=== PATIENT | female | born 1930 | race Caucasian/White ===

== ENCOUNTER 2017-10-11 09:03 | Inpatient (IN) | payer MEDICARE, BC ==
[2017-10-11 10:20] LABS: CHLORIDE,CL 104 mmol/L (98-107); SODIUM,NA 141 mmol/L (136-145)
[2017-10-11] MEDS: Acetaminophen 650 MG Tab.ER PO SCH ×2 (11:38→17:24)
--- NOTE | 2017-10-11 13:14 | PCM.HP ---
H&P History of Present Illness - General Date of Service: 10/11/17 Admit Problem/Dx: Admission Diagnosis/Problem Admission Diagnosis/Problem Fracture of pelvis Source of Information: Patient, EMS Notes Reviewed History Limitations: Reports: Altered Mental Status - History of Present Illness Initial Comments - Free Text/Narative: Patient has been seen in the clinic yesterday with continual left groin pain. Xrays done and CT scan done which shows nondisplaced fracture involoving the left inferior pubic ramus. No recent trauma according to the staff at the [facility] however the patient is a limited historian due to her dementia. Patient complains of pain with ambulating, no pain with sitting. Denies any blood in the urine. Labs drawn yesterday. Location: Reports: Lower Extremity, Left Improves with: Reports: Rest Worsens with: Reports: Movement Associated Symptoms: Reports: Confusion - Related Data Allergies/Adverse Reactions: Allergies Allergy/AdvReac Type Severity Reaction Status Date / Time fentanyl Allergy Confusion Verified 10/11/17 09:54 Home Medications: Home Meds Donepezil [Aricept] 5 mg PO QPM 04/15/15 [History] Acetaminophen [Tylenol Arthritis Pain] 650 mg PO TID 10/20/15 [History] Cyanocobalamin (Vitamin B12) [Vitamin B12] 1,000 mcg IM Q30D 10/20/15 [History] Multivitamins [Tab-A-Te] 1 tab PO QAM 10/27/15 [History] Cholecalciferol (Vitamin D3) [Vitamin D3] 1,000 unit PO QAM 03/28/16 [History] Hydrocortisone [Anusol-HC] 1 applic RECTAL BID PRN 03/28/16 [History] Lactulose 30 ml PO DAILY PRN 03/28/16 [History] Calcium Carbonate [Calcium] 500 mg PO BID 10/08/16 [History] Memantine HCl [Namenda] 5 mg PO BID 10/11/17 [History] Past Medical History HEENT History: Reports: Impaired Vision Cardiovascular History: Reports: Arrhythmia, CAD, Heart Failure, High Cholesterol, Hypertension Respiratory History: Reports: COPD, Pulmonary Fibrosis Gastrointestinal History: Reports: Fecal Incontinence Other Gastrointestinal History: Borderline dysphagia, new incontinence issues Genitourinary History: Reports: Urinary Incontinence Other Genitourinary History: new incontinence issues [employer]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 Musculoskeletal History: Reports: Arthritis, Back Pain, Chronic, Fracture, Neck Pain, Chronic, Osteoarthritis, Osteoporosis Other Musculoskeletal History: new onset of Lt upper thigh/groin/hip area pain especially with weightbearing Neurological History: Reports: Alzheimers Disease Psychiatric History: Reports: Depression Endocrine/Metabolic History: Reports: Multinodular Thyroid, Osteoporosis Other Endocrine/Metabolic History: Left thyroid nodule, 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 requiring surgery as below Hematologic History: Reports: Anemia, B12 Deficiency Immunologic History: Reports: None Oncologic (Cancer) History: Reports: None Dermatologic History: Reports: None - Infectious Disease History Infectious Disease History: Reports: Chicken Pox, Measles, Shingles - Past Surgical History Head Surgeries/Procedures: Reports: None HEENT Surgical History: Reports: Cataract Surgery, Tonsillectomy Endocrine Surgical History: Reports: Thyroidectomy, Other (See Below) - Past Imaging History Past Imaging History: Reports: IMELDA Screen, Cardiac Echo, CAT Scan, DEXA Scan, MRI, Ultrasound Social & Family History - Family History Cardiac: Reports: [place] Neurological: Reports: CVA Oncologic: Reports: Lung, Renal, Other (See Below) Other Oncologic Family History: Father with possible fatal stomach cancer at age 52 - Tobacco Use Smoking Status *Q: Never Smoker Second Hand Smoke Exposure: No - Caffeine Use Caffeine Use: Reports: Coffee - Alcohol Use Days Per Week of Alcohol Use: 0 Number of Drinks Per Day: 0 Total Drinks Per Week: 0 - Recreational Drug Use Recreational Drug Use: No Drug Use in Last 12 Months: No - Living Situation & Occupation Living situation: Reports: , Assisted Living H&P Review of Systems - Review of Systems: Review Of Systems: See Below General: Reports: Weakness HEENT: Reports: No Symptoms Pulmonary: Reports: No Symptoms Cardiovascular: Reports: No Symptoms Gastrointestinal: Reports: No Symptoms Genitourinary: Reports: No Symptoms Musculoskeletal: Reports: Leg Pain, Joint Pain Skin: Reports: No Symptoms Psychiatric: Reports: Confusion Neurological: Reports: Confusion Hematologic/Lymphatic: Reports: No Symptoms Immunologic: Reports: No Symptoms Exam - Exam Exam: See Below - Vital Signs Vital Signs: Last Vital Signs Temp 97.7 F 10/11/17 12:00 Pulse 64 10/11/17 12:00 Resp 16 10/11/17 12:00 BP 142/80 H 10/11/17 12:00 Pulse Ox 98 10/11/17 12:00 Weight: 119 lb 3.2 oz - Exam General: Alert, Cooperative HEENT: Conjunctiva Clear, EACs Clear, EOMI, Mucosa Moist & [place], Normal Nasal Septum, Posterior Pharynx Clear Neck: Supple, Trachea Midline Lungs: Clear to Auscultation, Normal Respiratory Effort Cardiovascular: Regular Rate, Regular Rhythm GI/Abdominal Exam: Normal Bowel Sounds, Soft, Non-Tender, No Organomegaly, No Distention Back Exam: Normal Inspection Extremities: No Pedal Edema, Normal Capillary Refill Peripheral Pulses: 1+: Dorsalis Pedis (L), Dorsalis Pedis (R) Skin: Warm, Dry, Intact Neurological: Cranial Nerves Intact, Reflexes Equal Bilateral Neuro Extensive - Mental Status: Normal Mood/Affect, Disorientation to Time - Patient Data Lab Results Last 24 hrs: Laboratory Results - last 24 hr 10/11/17 10/11/17 Range/Units 10:00 10:05 WBC 6.4 (4.0-10.2) K/uL RBC 3.81 (3.77-5.09) M/uL Hgb 13.0 (11.7-15.5) g/dL Hct 38.5 (34.0-46.0) % MCV 101.0 H (84.0-98.0) fL MCH 34.1 H (28.2-33.3) pg MCHC 33.8 (31.7-36.0) g/dL RDW 13.7 (11.2-14.1) % Plt Count 284 (150-350) K/uL Neut % (Auto) 71.0 (45.0-80.0) % Lymph % (Auto) 15.6 (10.0-50.0) % [place] % (Auto) 11.4 (2.0-14.0) % Eos % (Auto) 1.4 (0.0-5.0) % Baso % (Auto) 0.6 (0.0-2.0) % Neut # (Auto) 4.54 (1.40-7.00) K/uL Lymph # (Auto) 1.00 (0.50-3.50) K/uL [place] # (Auto) 0.73 (0.00-1.00) K/uL Eos # (Auto) 0.09 (0.00-0.50) K/uL Baso # (Auto) 0.04 (0.00-0.20) K/uL Sodium 141 (136-145) mmol/L Potassium 4.1 (3.5-5.1) mmol/L Chloride 104 (98-107) mmol/L Carbon Dioxide 24.7 (21.0-32.0) mmol/L BUN 18 (7-18) mg/dL Creatinine 0.78 (0.51-1.17) mg/dL Est Cr Clr Drug Dosing TNP Estimated GFR (MDRD) > 60 mL/min Glucose 87 (74-106) mg/dL Calcium 9.3 (8.5-10.1) mg/dL Total Bilirubin 0.3 (0.2-1.0) mg/dL AST 15 (15-37) U/L ALT 17 (12-78) U/L Alkaline Phosphatase 112 (46-116) IU/L C-Reactive Protein 0.2 (<=0.9) mg/dL Total Protein 6.9 (6.4-8.2) g/dL Albumin 3.5 (3.4-5.0) g/dL Result Diagrams: 10/11/17 10:05 10/11/17 10:00 *Q Meaningful Use (ADM) - VTE *Q VTE Criteria *Q: - Stroke *Q Stroke Criteria *Q: - AMI *Q AMI Criteria *Q: - Problem List (1) Fracture of left pelvis SNOMED Code(s): 98743723 ICD Code: S32.9XXA - FRACTURE OF UNSP PARTS OF LUMBOSACRAL SPINE AND PELVIS, INIT Status: Acute Current Visit: Yes Qualifiers: Encounter type: initial encounter Pelvic bone location: pubis Sublocation of pubis: unspecified portion of pubis Fracture type: closed Qualified Code(s): S32.502A - Unspecified fracture of left pubis, initial encounter for closed fracture (2) Dementia SNOMED Code(s): 28061692 ICD Code: F03.90 - UNSPECIFIED DEMENTIA WITHOUT BEHAVIORAL DISTURBANCE Status: Acute Current Visit: Yes Qualifiers: Dementia type: Alzheimer's disease (3) Hypertension SNOMED Code(s): 07317030 ICD Code: I10 - ESSENTIAL (PRIMARY) HYPERTENSION Status: Chronic Priority : Medium Current Visit: No Problem Details: Stable in the emergency room Qualifiers: Hypertension type: essential hypertension Qualified Code(s): I10 - Essential (primary) hypertension Problem List Initiated/Reviewed/Updated: Yes Orders Last 24hrs: Active Orders 24 hr Category Date Time Status Patient Status [ADT] Routine ADT 10/11/17 09:47 Active Antiembolic Devices [RC] PER UNIT ROUTINE Care 10/11/17 09:51 Active Bedrest Bathroom Privileges [RC] ASDIRECTED Care 10/11/17 09:47 Active Intake and Output [RC] QSHIFT Care 10/11/17 09:49 Active Oxygen Therapy [RC] PRN Care 10/11/17 09:47 Active Peripheral IV Care [RC] 00,08,16 Care 10/11/17 09:51 Active VTE/DVT Education [RC] PER UNIT ROUTINE Care 10/11/17 09:47 Active Vital Signs [RC] Q4HR Care 10/11/17 09:47 Active Consult to Case Management [CONS] Routine Cons 10/11/17 09:47 Active PT Evaluation and Treatment [CONS] Routine Cons 10/11/17 09:47 Active Regular Diet [DIET] Diet 10/11/17 Lunch Active CBC WITH AUTO DIFF [HEME] DAILY Lab 10/12/17 05:11 Ordered CBC WITH AUTO DIFF [HEME] DAILY Lab 10/13/17 05:11 Ordered CBC WITH AUTO DIFF [HEME] DAILY Lab 10/14/17 05:11 Ordered CBC WITH AUTO DIFF [HEME] DAILY Lab 10/15/17 05:11 Ordered CMP [COMPREHENSIVE METABOLIC PN,CMP] [CHEM] DAILY Lab 10/12/17 05:11 Ordered CMP [COMPREHENSIVE METABOLIC PN,CMP] [CHEM] DAILY Lab 10/13/17 05:11 Ordered CMP [COMPREHENSIVE METABOLIC PN,CMP] [CHEM] DAILY Lab 10/14/17 05:11 Ordered CMP [COMPREHENSIVE METABOLIC PN,CMP] [CHEM] DAILY Lab 10/15/17 05:11 Ordered Acetaminophen [Tylenol Arthritis Pain] Med 10/11/17 12:00 Active 650 mg PO TID Calcium Carbonate [Tums] Med 10/11/17 18:00 Active 500 mg PO BID Cholecalciferol (Vitamin D3) [Vitamin D3] Med 10/12/17 08:00 Active 1,000 units PO QAM Donepezil [Aricept] Med 10/11/17 18:00 Active 5 mg PO QPM Ketorolac [Toradol] Med 10/11/17 13:15 Ordered 15 mg IVPUSH Q8H Memantine [Namenda] Med 10/11/17 18:00 Active 5 mg PO BID Multivitamins [Tab-A-Te] Med 10/12/17 08:00 Active 1 tab PO QAM Pantoprazole [ProTONIX IV] Med 10/11/17 13:15 Ordered 20 mg IVPUSH Q12H Sodium Chloride 0.9% [Saline Flush] Med 10/11/17 09:47 Active 10 ml FLUSH ASDIRECTED PRN Antiembolic Hose [OM.PC] Per Unit Routine Oth 10/11/17 09:49 Ordered Peripheral IV Insertion Adult [OM.PC] Routine Oth 10/11/17 09:47 Ordered Saline Lock Insert [OM.PC] Routine Oth 10/11/17 09:47 Ordered Resuscitation Status Routine Resus Stat 10/11/17 09:47 Ordered Medication Orders Acetaminophen (Tylenol Arthritis Pain) 650 mg PO TID FREDRICK Last Admin: 10/11/17 11:38 Dose: 650 mg Calcium Carbonate/Glycine (Tums) 500 mg PO BID FREDRICK Cholecalciferol (Vitamin D3) 1,000 units PO QAM FREDRICK Donepezil HCl (Aricept) 5 mg PO QPM FREDRICK Ketorolac Tromethamine (Toradol) 15 mg IVPUSH Q8H FREDRICK Stop: 10/14/17 13:07 Memantine (Namenda) 5 mg PO BID FREDRICK Multivitamins/Minerals/Vitamin C (Tab-A-Te) 1 tab PO QAM FREDRICK Pantoprazole Sodium (Protonix Iv) 20 mg IVPUSH Q12H FREDRICK Sodium Chloride (Saline Flush) 10 ml FLUSH ASDIRECTED PRN PRN Reason: Keep Vein Open Assessment/Plan Comment:: 10/11/2017 Patient is admitted for inpatient services for pelvic fracture and pain management, with outpatient failure. Patient is a resident at [facility] and has been receiving and needing more assistance with ADLs. Discussed with Dr Julio, will start IV Toradol along with IV Protonix. Monitor kidney function as well as for any bleeding issues. Wait to start Lovenox due to IV Toradol and risk of bleeding. Patient's daughter Bertha aware of the plan of care. Physical therapy consulted, patient will need 3 to 4 day hospital stay and then possibly swingbed for further rehab. Brenda Hilliard,BRICK CARRIER
[2017-10-11] MEDS ORDERED: Morphine 2 MG/ML Syringe IVPUSH PRN (13:23)
[2017-10-11] MEDS: Ketorolac 15 MG/ML SDV IVPUSH SCH ×2 (14:07→22:07)
[2017-10-11] MEDS: Pantoprazole 40 MG Vial IVPUSH SCH (14:07)
[2017-10-11] MEDS: Sodium Chloride 0.9% 10 ML Syringe FLUSH PRN ×2 (14:08→22:07)
[2017-10-11] MEDS: Donepezil 5 MG Tab PO SCH (17:24)
[2017-10-11] MEDS: Memantine 10 MG Tab PO SCH (17:24)
[2017-10-11] MEDS: Calcium Carbonate 500 MG Tab.Chew PO SCH (17:24)
[2017-10-12] MEDS: Pantoprazole 40 MG Vial IVPUSH SCH ×2 (03:52→15:26)
[2017-10-12] MEDS: Ketorolac 15 MG/ML SDV IVPUSH SCH ×3 (06:15→21:31)
[2017-10-12] MEDS: Sodium Chloride 0.9% 10 ML Syringe FLUSH PRN ×2 (06:17→21:31)
[2017-10-12] MEDS: Memantine 10 MG Tab PO SCH ×2 (07:53→17:53)
[2017-10-12] MEDS: Calcium Carbonate 500 MG Tab.Chew PO SCH ×2 (07:53→17:51)
[2017-10-12] MEDS: Acetaminophen 650 MG Tab.ER PO SCH ×3 (07:54→19:51)
[2017-10-12] MEDS: Multivitamin Tab PO SCH (07:54)
[2017-10-12] MEDS: Cholecalciferol (Vitamin D3) 1,000 Unit Tab PO SCH (07:54)
[2017-10-12 08:03] LABS: CHLORIDE,CL 105 mmol/L (98-107); SODIUM,NA 140 mmol/L (136-145)
[2017-10-12] MEDS: Donepezil 5 MG Tab PO SCH (17:51)
--- NOTE | 2017-10-12 18:16 | PCM.PN ---
- General Info Date of Service: 10/12/17 Admission Dx/Problem (Free Text): Admission Diagnosis/Problem Admission Diagnosis/Problem Fracture of pelvis Functional Status: Reports: Tolerating Diet, Urinating - Review of Systems General: Reports: No Symptoms HEENT: Reports: No Symptoms Pulmonary: Reports: No Symptoms Cardiovascular: Reports: No Symptoms Gastrointestinal: Reports: No Symptoms Genitourinary: Reports: No Symptoms Musculoskeletal: Reports: Other (groin pain) Skin: Reports: No Symptoms Neurological: Reports: Confusion, Difficulty Walking, Weakness Psychiatric: Reports: Confusion - Patient Data Vitals - Most Recent: Last Vital Signs Temp 97.5 F 10/12/17 16:00 Pulse 70 10/12/17 16:00 Resp 12 10/12/17 16:00 BP 144/74 H 10/12/17 16:00 Pulse Ox 97 10/12/17 16:00 Weight - Most Recent: 119 lb 3.192 oz I&O - Last 24 Hours: Intake & Output 10/12/17 10/12/17 10/12/17 06:59 14:59 22:59 Intake Total 1080 Balance 1080 Lab Results Last 24 Hours: Laboratory Results - last 24 hr 10/12/17 10/12/17 Range/Units 07:15 07:15 WBC 4.9 (4.0-10.2) K/uL RBC 3.55 L (3.77-5.09) M/uL Hgb 12.1 (11.7-15.5) g/dL Hct 36.0 (34.0-46.0) % MCV 101.4 H (84.0-98.0) fL MCH 34.1 H (28.2-33.3) pg MCHC 33.6 (31.7-36.0) g/dL RDW 13.6 (11.2-14.1) % Plt Count 255 (150-350) K/uL Neut % (Auto) 64.8 (45.0-80.0) % Lymph % (Auto) 19.8 (10.0-50.0) % [place] % (Auto) 9.9 (2.0-14.0) % Eos % (Auto) 4.9 (0.0-5.0) % Baso % (Auto) 0.6 (0.0-2.0) % Neut # (Auto) 3.15 (1.40-7.00) K/uL Lymph # (Auto) 0.96 (0.50-3.50) K/uL [place]ke # (Auto) 0.48 (0.00-1.00) K/uL Eos # (Auto) 0.24 (0.00-0.50) K/uL Baso # (Auto) 0.03 (0.00-0.20) K/uL Sodium 140 (136-145) mmol/L Potassium 4.1 (3.5-5.1) mmol/L Chloride 105 (98-107) mmol/L Carbon Dioxide 25.2 (21.0-32.0) mmol/L BUN 21 H (7-18) mg/dL Creatinine 0.81 (0.51-1.17) mg/dL Est Cr Clr Drug Dosing 34.48 mL/min Estimated GFR (MDRD) > 60 mL/min Glucose 87 (74-106) mg/dL Calcium 8.9 (8.5-10.1) mg/dL Total Bilirubin 0.4 (0.2-1.0) mg/dL AST 16 (15-37) U/L ALT 20 (12-78) U/L Alkaline Phosphatase 103 (46-116) IU/L Total Protein 6.6 (6.4-8.2) g/dL Albumin 3.3 L (3.4-5.0) g/dL Med Orders - Current: Current Medications Acetaminophen (Tylenol Arthritis Pain) 650 mg PO TID@0800,1400,2000 [facility] Last Admin: 10/12/17 15:25 Dose: 650 mg Calcium Carbonate/Glycine (Tums) 500 mg PO BID [facility] Last Admin: 10/12/17 17:51 Dose: 500 mg Cholecalciferol (Vitamin D3) 1,000 units PO QAM [facility] Last Admin: 10/12/17 07:54 Dose: 1,000 units Donepezil HCl (Aricept) 5 mg PO QPM [facility] Last Admin: 10/12/17 17:51 Dose: 5 mg Ketorolac Tromethamine (Toradol) 15 mg IVPUSH Q8H [facility] Stop: 10/14/17 14:01 Last Admin: 10/12/17 15:25 Dose: 15 mg Memantine (Namenda) 5 mg PO BID [facility] Last Admin: 10/12/17 17:53 Dose: 5 mg Morphine Sulfate (Morphine) 1 mg IVPUSH Q4H PRN PRN Reason: Pain Multivitamins/Minerals/Vitamin C (Tab-A-Te) 1 tab PO QAM [facility] Last Admin: 10/12/17 07:54 Dose: 1 tab Pantoprazole Sodium (Protonix Iv) 20 mg IVPUSH Q12H [facility] Sodium Chloride (Saline Flush) 10 ml FLUSH ASDIRECTED PRN PRN Reason: Keep Vein Open Last Admin: 10/12/17 06:17 Dose: 10 ml Discontinued Medications Acetaminophen (Tylenol Arthritis Pain) 650 mg PO TID [facility] Last Admin: 10/12/17 07:54 Dose: 650 mg Pantoprazole Sodium (Protonix Iv) 20 mg IVPUSH Q12H [facility] Last Admin: 10/12/17 15:26 Dose: 20 mg - Exam General: Alert, Cooperative, Mild Distress HEENT: Mucous Membr. Moist/[place] Neck: Trachea Midline, No JVD Lungs: Clear to Auscultation, Normal Respiratory Effort Cardiovascular: Regular Rate, Regular Rhythm GI/Abdominal Exam: Normal Bowel Sounds, Soft, Non-Tender, No Distention, Pelvis Stable (but with pain) (Female) Exam: Deferred Back Exam: Other (kyphosis) Extremities: Normal Inspection, No Pedal Edema Skin: Warm, Dry, Intact Neurological: No New Focal Deficit Psy/Mental Status: Alert, Anxious - Problem List & Annotations (1) Dementia SNOMED Code(s): 52885934 Code(s): F03.90 - UNSPECIFIED DEMENTIA WITHOUT BEHAVIORAL DISTURBANCE Status: Acute Current Visit: Yes Qualifiers: Dementia type: Alzheimer's disease (2) Fracture of left pelvis SNOMED Code(s): 22962307 Code(s): S32.9XXA - FRACTURE OF UNSP PARTS OF LUMBOSACRAL SPINE AND PELVIS, INIT Status: Acute Current Visit: Yes Qualifiers: Encounter type: initial encounter Pelvic bone location: pubis Sublocation of pubis: unspecified portion of pubis Fracture type: closed Qualified Code(s): S32.502A - Unspecified fracture of left pubis, initial encounter for closed fracture (3) Anemia SNOMED Code(s): 302863457 Code(s): D64.9 - ANEMIA, UNSPECIFIED Status: Acute Priority: Medium Current Visit: No Annotation/Comment:: Note history of vitamin B 12 deficiency with no supplementation at this time CBC and vitamin B 12 level to be conducted in the a.m. Note the distant EGD and colonoscopy as above. No current abdominal complaints patient given IV Pepcid as GI prophylaxis (4) Confusion SNOMED Code(s): 752077762 Code(s): R41.0 - DISORIENTATION, UNSPECIFIED Status: Chronic Priority: Medium Current Visit: No Annotation/Comment:: r (5) Dyslipidemia SNOMED Code(s): 464846952 Code(s): E78.5 - HYPERLIPIDEMIA, UNSPECIFIED Status: Chronic Priority: Medium Current Visit: No (6) Heart disease SNOMED Code(s): 92676971 Code(s): I51.9 - HEART DISEASE, UNSPECIFIED Status: Chronic Priority: High Current Visit: No Onset Date: 04/16/15 Annotation/Comment:: No chest pain or recent cardiac symptoms (7) Hypertension SNOMED Code(s): 18662264 Code(s): I10 - ESSENTIAL (PRIMARY) HYPERTENSION Status: Chronic Priority : Medium Current Visit: No Qualifiers: Hypertension type: essential hypertension Qualified Code(s): I10 - Essential (primary) hypertension Annotation/Comment:: Stable in the emergency room (8) Osteoarthritis SNOMED Code(s): 467490279 Code(s): M19.90 - UNSPECIFIED OSTEOARTHRITIS, UNSPECIFIED SITE Status: Chronic Priority: Medium Current Visit: No Qualifiers: Osteoarthritis location: multiple joints Osteoarthritis type: primary Qualified Code(s): M15.0 - Primary generalized (osteo)arthritis Annotation/Comment:: Osteoarthritis otherwise stable including chronic neck and low back pain - Problem List Review Problem List Initiated/Reviewed/Updated: Yes - My Orders Last 24 Hours: My Active Orders 10/13/17 05:11 FERRITIN [CHEM] Routine FOLIC ACID [CHEM] Routine IRON/TIBC [CHEM] Routine VITAMIN B12 [CHEM] Routine VITAMIN D 25-HYROXY (D2, D3) [REF] Routine - Plan Plan:: 10/11/2017 Patient is admitted for inpatient services for pelvic fracture and pain management, with outpatient failure. Patient is a resident at [facility] and has been receiving and needing more assistance with ADLs. Discussed with Dr Julio, will start IV Toradol along with IV Protonix. Monitor kidney function as well as for any bleeding issues. Wait to start Lovenox due to IV Toradol and risk of bleeding. Patient's daughter Bertha aware of the plan of care. Physical therapy consulted, patient will need 3 to 4 day hospital stay and then possibly swingbed for further rehab. Brenda Hilliard,SUPERVIS[employer] 09/1317 Nori Paulino MD Anxious. Confusion. Still with left groin pain. Slight improvement. Kidney function stable. Continue medical plan.
[2017-10-13] MEDS: Ketorolac 15 MG/ML SDV IVPUSH SCH ×4 (05:37→22:32)
[2017-10-13 08:00] LABS: CHLORIDE,CL 106 mmol/L (98-107); SODIUM,NA 140 mmol/L (136-145)
[2017-10-13] MEDS: Memantine 10 MG Tab PO SCH ×2 (08:46→17:03)
[2017-10-13] MEDS: Multivitamin Tab PO SCH (08:46)
[2017-10-13] MEDS: Pantoprazole 40 MG Vial IVPUSH SCH ×2 (08:46→19:49)
[2017-10-13] MEDS: Cholecalciferol (Vitamin D3) 1,000 Unit Tab PO SCH (08:47)
[2017-10-13] MEDS: Calcium Carbonate 500 MG Tab.Chew PO SCH ×2 (08:47→17:03)
[2017-10-13] MEDS: Sodium Chloride 0.9% 10 ML Syringe FLUSH PRN ×4 (08:48→22:32)
[2017-10-13] MEDS: Acetaminophen 650 MG Tab.ER PO SCH ×3 (08:48→19:49)
--- NOTE | 2017-10-13 12:28 | PCM.PN ---
- General Info Date of Service: 10/13/17 Admission Dx/Problem (Free Text): Admission Diagnosis/Problem Admission Diagnosis/Problem Fracture of pelvis Functional Status: Reports: Tolerating Diet - Review of Systems General: Reports: No Symptoms HEENT: Reports: No Symptoms Pulmonary: Reports: No Symptoms Cardiovascular: Reports: No Symptoms Gastrointestinal: Reports: No Symptoms Genitourinary: Reports: No Symptoms Musculoskeletal: Reports: Other (pain left groin) Skin: Reports: No Symptoms Neurological: Reports: Confusion Psychiatric: Reports: Confusion - Patient Data Vitals - Most Recent: Last Vital Signs Temp 97.5 F 10/13/17 11:20 Pulse 61 10/13/17 11:20 Resp 16 10/13/17 11:20 BP 108/56 L 10/13/17 11:20 Pulse Ox 98 10/13/17 11:20 Weight - Most Recent: 119 lb 3.192 oz I&O - Last 24 Hours: Intake & Output 10/12/17 10/13/17 10/13/17 22:59 06:59 14:59 Intake Total 100 120 Balance 100 120 Lab Results Last 24 Hours: Laboratory Results - last 24 hr 10/13/17 10/13/17 10/13/17 Range/Units 07:05 07:05 07:05 WBC 5.4 (4.0-10.2) K/uL RBC 3.37 L (3.77-5.09) M/uL Hgb 11.7 (11.7-15.5) g/dL Hct 34.1 (34.0-46.0) % MCV 101.2 H (84.0-98.0) fL MCH 34.7 H (28.2-33.3) pg MCHC 34.3 (31.7-36.0) g/dL RDW 13.4 (11.2-14.1) % Plt Count 239 (150-350) K/uL Neut % (Auto) 67.0 (45.0-80.0) % Lymph % (Auto) 16.5 (10.0-50.0) % [place] % (Auto) 10.5 (2.0-14.0) % Eos % (Auto) 5.3 H (0.0-5.0) % Baso % (Auto) 0.7 (0.0-2.0) % Neut # (Auto) 3.64 (1.40-7.00) K/uL Lymph # (Auto) 0.90 (0.50-3.50) K/uL [place] # (Auto) 0.57 (0.00-1.00) K/uL Eos # (Auto) 0.29 (0.00-0.50) K/uL Baso # (Auto) 0.04 (0.00-0.20) K/uL Sodium 140 (136-145) mmol/L Potassium 4.1 (3.5-5.1) mmol/L Chloride 106 (98-107) mmol/L Carbon Dioxide 24.1 (21.0-32.0) mmol/L BUN 22 H (7-18) mg/dL Creatinine 0.80 (0.51-1.17) mg/dL Est Cr Clr Drug Dosing 34.91 mL/min Estimated GFR (MDRD) > 60 mL/min Glucose 91 (74-106) mg/dL Calcium 8.9 (8.5-10.1) mg/dL Iron 109 (50-175) ug/dL TIBC 254 (250-450) ug/dL % Saturation [id number] Ferritin 134 (8-388) ng/mL Total Bilirubin 0.4 (0.2-1.0) mg/dL AST 16 (15-37) U/L ALT 17 (12-78) U/L Alkaline Phosphatase 101 (46-116) IU/L Total Protein 6.3 L (6.4-8.2) g/dL Albumin 3.2 L (3.4-5.0) g/dL Vitamin B12 521 (193-986) pg/mL Folate 24.3 (8.6-58.9) ng/mL Med Orders - Current: Current Medications Acetaminophen (Tylenol Arthritis Pain) 650 mg PO TID@0800,1400,2000 [facility] Last Admin: 10/13/17 08:48 Dose: 650 mg Calcium Carbonate/Glycine (Tums) 500 mg PO BID [facility] Last Admin: 10/13/17 08:47 Dose: 500 mg Cholecalciferol (Vitamin D3) 1,000 units PO QAM [facility] Last Admin: 10/13/17 08:47 Dose: 1,000 units Donepezil HCl (Aricept) 5 mg PO QPM [facility] Last Admin: 10/12/17 17:51 Dose: 5 mg Ketorolac Tromethamine (Toradol) 15 mg IVPUSH Q8H [facility] Stop: 10/14/17 14:01 Last Admin: 10/13/17 06:07 Dose: 15 mg Memantine (Namenda) 5 mg PO BID [facility] Last Admin: 10/13/17 08:46 Dose: 5 mg Morphine Sulfate (Morphine) 1 mg IVPUSH Q4H PRN PRN Reason: Pain Multivitamins/Minerals/Vitamin C (Tab-A-Te) 1 tab PO QAM [facility] Last Admin: 10/13/17 08:46 Dose: 1 tab Pantoprazole Sodium (Protonix Iv) 20 mg IVPUSH Q12H [facility] Last Admin: 10/13/17 08:46 Dose: 20 mg Sodium Chloride (Saline Flush) 10 ml FLUSH ASDIRECTED PRN PRN Reason: Keep Vein Open Last Admin: 10/13/17 08:48 Dose: 10 ml Discontinued Medications Acetaminophen (Tylenol Arthritis Pain) 650 mg PO TID [facility] Last Admin: 10/12/17 07:54 Dose: 650 mg Pantoprazole Sodium (Protonix Iv) 20 mg IVPUSH Q12H [facility] Last Admin: 10/12/17 15:26 Dose: 20 mg - Exam General: Alert, Cooperative, No Acute Distress HEENT: Mucous Membr. Moist/[place] Neck: Trachea Midline, No JVD Lungs: Clear to Auscultation, Normal Respiratory Effort Cardiovascular: Regular Rate, Regular Rhythm GI/Abdominal Exam: Normal Bowel Sounds, Soft, Non-Tender, No Distention (Female) Exam: Deferred Back Exam: Other (kyphosis) Extremities: Normal Inspection, Non-Tender, No Pedal Edema Skin: Warm, Dry, Intact Neurological: No New Focal Deficit Psy/Mental Status: Alert, Anxious - Problem List & Annotations (1) Dementia SNOMED Code(s): 41359423 Code(s): F03.90 - UNSPECIFIED DEMENTIA WITHOUT BEHAVIORAL DISTURBANCE Status: Acute Current Visit: Yes Qualifiers: Dementia type: Alzheimer's disease (2) Fracture of left pelvis SNOMED Code(s): 91404608 Code(s): S32.9XXA - FRACTURE OF UNSP PARTS OF LUMBOSACRAL SPINE AND PELVIS, INIT Status: Acute Current Visit: Yes Qualifiers: Encounter type: initial encounter Pelvic bone location: pubis Sublocation of pubis: unspecified portion of pubis Fracture type: closed Qualified Code(s): S32.502A - Unspecified fracture of left pubis, initial encounter for closed fracture (3) Anemia SNOMED Code(s): 054926496 Code(s): D64.9 - ANEMIA, UNSPECIFIED Status: Acute Priority: Medium Current Visit: No Annotation/Comment:: Note history of vitamin B 12 deficiency with no supplementation at this time CBC and vitamin B 12 level to be conducted in the a.m. Note the distant EGD and colonoscopy as above. No current abdominal complaints patient given IV Pepcid as GI prophylaxis (4) Confusion SNOMED Code(s): 899243966 Code(s): R41.0 - DISORIENTATION, UNSPECIFIED Status: Chronic Priority: Medium Current Visit: No Annotation/Comment:: r (5) Dyslipidemia SNOMED Code(s): 702571239 Code(s): E78.5 - HYPERLIPIDEMIA, UNSPECIFIED Status: Chronic Priority: Medium Current Visit: No (6) Heart disease SNOMED Code(s): 83343470 Code(s): I51.9 - HEART DISEASE, UNSPECIFIED Status: Chronic Priority: High Current Visit: No Onset Date: 04/16/15 Annotation/Comment:: No chest pain or recent cardiac symptoms (7) Hypertension SNOMED Code(s): 85455345 Code(s): I10 - ESSENTIAL (PRIMARY) HYPERTENSION Status: Chronic Priority : Medium Current Visit: No Qualifiers: Hypertension type: essential hypertension Qualified Code(s): I10 - Essential (primary) hypertension Annotation/Comment:: Stable in the emergency room (8) Osteoarthritis SNOMED Code(s): 494059736 Code(s): M19.90 - UNSPECIFIED OSTEOARTHRITIS, UNSPECIFIED SITE Status: Chronic Priority: Medium Current Visit: No Qualifiers: Osteoarthritis location: multiple joints Osteoarthritis type: primary Qualified Code(s): M15.0 - Primary generalized (osteo)arthritis Annotation/Comment:: Osteoarthritis otherwise stable including chronic neck and low back pain - Problem List Review Problem List Initiated/Reviewed/Updated: Yes - My Orders Last 24 Hours: My Active Orders 10/13/17 07:05 VITAMIN D 25-HYROXY (D2, D3) [REF] Routine - Plan Plan:: 10/11/2017 Patient is admitted for inpatient services for pelvic fracture and pain management, with outpatient failure. Patient is a resident at [facility] and has been receiving and needing more assistance with ADLs. Discussed with Dr Julio, will start IV Toradol along with IV Protonix. Monitor kidney function as well as for any bleeding issues. Wait to start Lovenox due to IV Toradol and risk of bleeding. Patient's daughter Bertha aware of the plan of care. Physical therapy consulted, patient will need 3 to 4 day hospital stay and then possibly swingbed for further rehab. Brenda Hilliard,LONG TERM CARE SOCIAL WORKER 10/12/17 Nori Paulino MD Anxious. Confusion. Still with left groin pain. Slight improvement. Kidney function stable. Continue medical plan. 10/13/17 Nori Paulino MD Mental confusion. Anxious some improvement. Still with left groin pain. Kidney function stable. H/H stable. Continue IV toradol and PT-OT. Discharge planning discussed.
[2017-10-13] MEDS: Donepezil 5 MG Tab PO SCH (17:03)
[2017-10-14] MEDS: Ketorolac 15 MG/ML SDV IVPUSH SCH ×2 (06:36→14:06)
[2017-10-14] MEDS: Sodium Chloride 0.9% 10 ML Syringe FLUSH PRN (06:36)
[2017-10-14 07:16] LABS: CHLORIDE,CL 108 mmol/L (98-107); SODIUM,NA 143 mmol/L (136-145)
[2017-10-14] MEDS: Cholecalciferol (Vitamin D3) 1,000 Unit Tab PO SCH (07:40)
[2017-10-14] MEDS: Multivitamin Tab PO SCH (07:40)
[2017-10-14] MEDS: Acetaminophen 650 MG Tab.ER PO SCH ×2 (07:40→13:17)
[2017-10-14] MEDS: Memantine 10 MG Tab PO SCH (07:40)
[2017-10-14] MEDS: Calcium Carbonate 500 MG Tab.Chew PO SCH (07:41)
[2017-10-14] MEDS: Pantoprazole 40 MG Vial IVPUSH SCH (08:01)
[2017-10-14 15:28] VITALS: BP 141/75
--- NOTE | 2017-10-14 16:38 | PCM.PN ---
- General Info Date of Service: 10/14/17 Admission Dx/Problem (Free Text): Admission Diagnosis/Problem Admission Diagnosis/Problem Fracture of pelvis Functional Status: Reports: Pain Controlled - Review of Systems General: Reports: No Symptoms HEENT: Reports: No Symptoms Pulmonary: Reports: No Symptoms Cardiovascular: Reports: No Symptoms Gastrointestinal: Reports: No Symptoms Genitourinary: Reports: No Symptoms Musculoskeletal: Reports: No Symptoms Skin: Reports: No Symptoms Neurological: Reports: No Symptoms Psychiatric: Reports: No Symptoms - Patient Data Vitals - Most Recent: Last Vital Signs Temp 97.7 F 10/14/17 15:28 Pulse 72 10/14/17 15:28 Resp 16 10/14/17 15:28 BP 141/75 H 10/14/17 15:28 Pulse Ox 98 10/14/17 15:28 Weight - Most Recent: 119 lb 3.192 oz I&O - Last 24 Hours: Intake & Output 10/14/17 10/14/17 10/14/17 06:59 14:59 22:59 Intake Total 340 Output Total 200 Balance 140 Lab Results Last 24 Hours: Laboratory Results - last 24 hr 10/13/17 10/14/17 10/14/17 Range/Units 07:05 06:40 06:40 WBC 5.0 (4.0-10.2) K/uL RBC 3.38 L (3.77-5.09) M/uL Hgb 11.7 (11.7-15.5) g/dL Hct 34.3 (34.0-46.0) % MCV 101.5 H (84.0-98.0) fL MCH 34.6 H (28.2-33.3) pg MCHC 34.1 (31.7-36.0) g/dL RDW 13.4 (11.2-14.1) % Plt Count 229 (150-350) K/uL Neut % (Auto) 64.0 (45.0-80.0) % Lymph % (Auto) 18.6 (10.0-50.0) % [place] % (Auto) 9.8 (2.0-14.0) % Eos % (Auto) 7.2 H (0.0-5.0) % Baso % (Auto) 0.4 (0.0-2.0) % Neut # (Auto) 3.20 (1.40-7.00) K/uL Lymph # (Auto) 0.93 (0.50-3.50) K/uL [place] # (Auto) 0.49 (0.00-1.00) K/uL Eos # (Auto) 0.36 (0.00-0.50) K/uL Baso # (Auto) 0.02 (0.00-0.20) K/uL Sodium 143 (136-145) mmol/L Potassium 4.4 (3.5-5.1) mmol/L Chloride 108 H (98-107) mmol/L Carbon Dioxide 23.7 (21.0-32.0) mmol/L BUN 24 H (7-18) mg/dL Creatinine 0.81 (0.51-1.17) mg/dL Est Cr Clr Drug Dosing 34.48 mL/min Estimated GFR (MDRD) > 60 mL/min Glucose 85 (74-106) mg/dL Calcium 8.8 (8.5-10.1) mg/dL Total Bilirubin 0.4 (0.2-1.0) mg/dL AST 19 (15-37) U/L ALT 18 (12-78) U/L Alkaline Phosphatase 104 (46-116) IU/L Total Protein 6.4 (6.4-8.2) g/dL Albumin 3.2 L (3.4-5.0) g/dL Vitamin D 25-Hydroxy 25 L (30-100) ng/mL Med Orders - Current: Current Medications Acetaminophen (Tylenol Arthritis Pain) 650 mg PO TID@0800,1400,2000 [facility] Last Admin: 10/14/17 13:17 Dose: 650 mg Calcium Carbonate/Glycine (Tums) 500 mg PO BID [facility] Last Admin: 10/14/17 07:41 Dose: 500 mg Cholecalciferol (Vitamin D3) 1,000 units PO BID [facility] Donepezil HCl (Aricept) 5 mg PO QPM [facility] Last Admin: 10/13/17 17:03 Dose: 5 mg Memantine (Namenda) 5 mg PO BID [facility] Last Admin: 10/14/17 07:40 Dose: 5 mg Multivitamins/Minerals/Vitamin C (Tab-A-Te) 1 tab PO QAM [facility] Last Admin: 10/14/17 07:40 Dose: 1 tab Sodium Chloride (Saline Flush) 10 ml FLUSH ASDIRECTED PRN PRN Reason: Keep Vein Open Last Admin: 10/14/17 06:36 Dose: 10 ml Discontinued Medications Acetaminophen (Tylenol Arthritis Pain) 650 mg PO TID [facility] Last Admin: 10/12/17 07:54 Dose: 650 mg Cholecalciferol (Vitamin D3) 1,000 units PO QAM [facility] Last Admin: 10/14/17 07:40 Dose: 1,000 units Ketorolac Tromethamine (Toradol) 15 mg IVPUSH Q8H [facility] Stop: 10/14/17 14:01 Last Admin: 10/14/17 14:06 Dose: Not Given Morphine Sulfate (Morphine) 1 mg IVPUSH Q4H PRN PRN Reason: Pain Pantoprazole Sodium (Protonix Iv) 20 mg IVPUSH Q12H [facility] Last Admin: 10/12/17 15:26 Dose: 20 mg Pantoprazole Sodium (Protonix Iv) 20 mg IVPUSH Q12H [facility] Last Admin: 10/14/17 08:01 Dose: Not Given - Exam General: Alert, Cooperative, No Acute Distress HEENT: Pupils Equal, Pupils Reactive, EOMI, Mucous Membr. Moist/[place] Neck: Trachea Midline, No JVD Lungs: Clear to Auscultation, Normal Respiratory Effort Cardiovascular: Regular Rate, Regular Rhythm GI/Abdominal Exam: Normal Bowel Sounds, Soft, Non-Tender, No Distention, Pelvis Stable (Female) Exam: Deferred Back Exam: Normal Inspection, Full Range of Motion Extremities: Normal Inspection, Non-Tender, No Pedal Edema Skin: Warm, Dry, Intact Neurological: No New Focal Deficit Psy/Mental Status: Alert, Anxious - Problem List & Annotations (1) Dementia SNOMED Code(s): 47261204 Code(s): F03.90 - UNSPECIFIED DEMENTIA WITHOUT BEHAVIORAL DISTURBANCE Status: Acute Current Visit: Yes Qualifiers: Dementia type: Alzheimer's disease (2) Fracture of left pelvis SNOMED Code(s): 85275886 Code(s): S32.9XXA - FRACTURE OF UNSP PARTS OF LUMBOSACRAL SPINE AND PELVIS, INIT Status: Acute Current Visit: Yes Qualifiers: Encounter type: initial encounter Pelvic bone location: pubis Sublocation of pubis: unspecified portion of pubis Fracture type: closed Qualified Code(s): S32.502A - Unspecified fracture of left pubis, initial encounter for closed fracture (3) Anemia SNOMED Code(s): 094494588 Code(s): D64.9 - ANEMIA, UNSPECIFIED Status: Acute Priority: Medium Current Visit: No Annotation/Comment:: Note history of vitamin B 12 deficiency with no supplementation at this time CBC and vitamin B 12 level to be conducted in the a.m. Note the distant EGD and colonoscopy as above. No current abdominal complaints patient given IV Pepcid as GI prophylaxis (4) Confusion SNOMED Code(s): 876090385 Code(s): R41.0 - DISORIENTATION, UNSPECIFIED Status: Chronic Priority: Medium Current Visit: No Annotation/Comment:: r (5) Dyslipidemia SNOMED Code(s): 403658829 Code(s): E78.5 - HYPERLIPIDEMIA, UNSPECIFIED Status: Chronic Priority: Medium Current Visit: No (6) Heart disease SNOMED Code(s): 69140299 Code(s): I51.9 - HEART DISEASE, UNSPECIFIED Status: Chronic Priority: High Current Visit: No Onset Date: 04/16/15 Annotation/Comment:: No chest pain or recent cardiac symptoms (7) Hypertension SNOMED Code(s): 98884805 Code(s): I10 - ESSENTIAL (PRIMARY) HYPERTENSION Status: Chronic Priority : Medium Current Visit: No Qualifiers: Hypertension type: essential hypertension Qualified Code(s): I10 - Essential (primary) hypertension Annotation/Comment:: Stable in the emergency room (8) Osteoarthritis SNOMED Code(s): 341348488 Code(s): M19.90 - UNSPECIFIED OSTEOARTHRITIS, UNSPECIFIED SITE Status: Chronic Priority: Medium Current Visit: No Qualifiers: Osteoarthritis location: multiple joints Osteoarthritis type: primary Qualified Code(s): M15.0 - Primary generalized (osteo)arthritis Annotation/Comment:: Osteoarthritis otherwise stable including chronic neck and low back pain - Problem List Review Problem List Initiated/Reviewed/Updated: Yes - My Orders Last 24 Hours: My Active Orders 10/14/17 18:00 Cholecalciferol (Vitamin D3) [Vitamin D3] 1,000 units PO BID - Plan Plan:: 10/11/2017 Patient is admitted for inpatient services for pelvic fracture and pain management, with outpatient failure. Patient is a resident at [facility] and has been receiving and needing more assistance with ADLs. Discussed with Dr Julio, will start IV Toradol along with IV Protonix. Monitor kidney function as well as for any bleeding issues. Wait to start Lovenox due to IV Toradol and risk of bleeding. Patient's daughter Bertha aware of the plan of care. Physical therapy consulted, patient will need 3 to 4 day hospital stay and then possibly swingbed for further rehab. Brenda Hilliard,AUTOMOTIVE ELECTRICAL HELPER 10/12/17 Nori Paulino MD Anxious. Confusion. Still with left groin pain. Slight improvement. Kidney function stable. Continue medical plan. 10/13/17 Nori Paulino MD Mental confusion. Anxious some improvement. Still with left groin pain. Kidney function stable. H/H stable. Continue IV toradol and PT-OT. Discharge planning discussed. 10/14/17 Nori Paulino MD Pain improved. Will stop scheduled toradol and admit to swing bed for PT-OT.
--- NOTE | 2017-10-14 16:39 | PCM.DCSUM1 ---
Discharge Summary - Discharge Data Discharge Date: 10/14/17 Discharge Disposition: DC/Tfer W/I Hosp To Swing 61 Condition: Good - Discharge Diagnosis/Problem(s) (1) Dementia SNOMED Code(s): 33391780 ICD Code: F03.90 - UNSPECIFIED DEMENTIA WITHOUT BEHAVIORAL DISTURBANCE Status: Acute Current Visit: Yes Qualifiers: Dementia type: Alzheimer's disease (2) Fracture of left pelvis SNOMED Code(s): 22211291 ICD Code: S32.9XXA - FRACTURE OF UNSP PARTS OF LUMBOSACRAL SPINE AND PELVIS, INIT Status: Acute Current Visit: Yes Qualifiers: Encounter type: initial encounter Pelvic bone location: pubis Sublocation of pubis: unspecified portion of pubis Fracture type: closed Qualified Code(s): S32.502A - Unspecified fracture of left pubis, initial encounter for closed fracture (3) Anemia SNOMED Code(s): 157681982 ICD Code: D64.9 - ANEMIA, UNSPECIFIED Status: Acute Priority: Medium Current Visit: No Problem Details: Note history of vitamin B 12 deficiency with no supplementation at this time CBC and vitamin B 12 level to be conducted in the a.m. Note the distant EGD and colonoscopy as above. No current abdominal complaints patient given IV Pepcid as GI prophylaxis (4) Confusion SNOMED Code(s): 393702600 ICD Code: R41.0 - DISORIENTATION, UNSPECIFIED Status: Chronic Priority: Medium Current Visit: No Problem Details: r (5) Dyslipidemia SNOMED Code(s): 166326249 ICD Code: E78.5 - HYPERLIPIDEMIA, UNSPECIFIED Status: Chronic Priority: Medium Current Visit: No (6) Heart disease SNOMED Code(s): 93179933 ICD Code: I51.9 - HEART DISEASE, UNSPECIFIED Status: Chronic Priority: High Current Visit: No Onset Date: 04/16/15 Problem Details: No chest pain or recent cardiac symptoms (7) Hypertension SNOMED Code(s): 19672491 ICD Code: I10 - ESSENTIAL (PRIMARY) HYPERTENSION Status: Chronic Priority : Medium Current Visit: No Problem Details: Stable in the emergency room Qualifiers: Hypertension type: essential hypertension Qualified Code(s): I10 - Essential (primary) hypertension (8) Osteoarthritis SNOMED Code(s): 165592398 ICD Code: M19.90 - UNSPECIFIED OSTEOARTHRITIS, UNSPECIFIED SITE Status: Chronic Priority: Medium Current Visit: No Problem Details: Osteoarthritis otherwise stable including chronic neck and low back pain Qualifiers: Osteoarthritis location: multiple joints Osteoarthritis type: primary Qualified Code(s): M15.0 - Primary generalized (osteo)arthritis - Patient Summary/Data Consults: Consultations 10/11/17 09:47 Consult to Case Management [CONS] Routine PT Evaluation and Treatment [CONS] Routine - Patient Instructions Diet: Regular Diet as Tolerated Driving: Do Not Drive Showering/Bathing: May Shower - Discharge Plan Home Medications: Home Meds Donepezil [Aricept] 5 mg PO QPM 04/15/15 [History] Acetaminophen [Tylenol Arthritis Pain] 650 mg PO TID 10/20/15 [History] Cyanocobalamin (Vitamin B12) [Vitamin B12] 1,000 mcg IM Q30D 10/20/15 [History] Multivitamins [Tab-A-Te] 1 tab PO QAM 10/27/15 [History] Cholecalciferol (Vitamin D3) [Vitamin D3] 1,000 unit PO QAM 03/28/16 [History] Hydrocortisone [Anusol-HC] 1 applic RECTAL BID PRN 03/28/16 [History] Lactulose 30 ml PO DAILY PRN 03/28/16 [History] Calcium Carbonate [Calcium] 500 mg PO BID 10/08/16 [History] Memantine HCl [Namenda] 5 mg PO BID 10/11/17 [History] Patient Handouts: Simple Pelvic Fracture, Adult - Discharge Summary/Plan Comment DC Time >30 min.: No - Patient Data Vitals - Most Recent: Last Vital Signs Temp 97.7 F 10/14/17 15:28 Pulse 72 10/14/17 15:28 Resp 16 10/14/17 15:28 BP 141/75 H 10/14/17 15:28 Pulse Ox 98 10/14/17 15:28 Weight - Most Recent: 119 lb 3.192 oz I&O - Last 24 hours: Intake & Output 10/14/17 10/14/17 10/14/17 06:59 14:59 22:59 Intake Total 340 Output Total 200 Balance 140 Lab Results - Last 24 hrs: Laboratory Results - last 24 hr 12/14/17 12/15/17 12/15/17 Range/Units 07:05 06:40 06:40 WBC 5.0 (4.0-10.2) K/uL RBC 3.38 L (3.77-5.09) M/uL Hgb 11.7 (11.7-15.5) g/dL Hct 34.3 (34.0-46.0) % MCV 101.5 H (84.0-98.0) fL MCH 34.6 H (28.2-33.3) pg MCHC 34.1 (31.7-36.0) g/dL RDW 13.4 (11.2-14.1) % Plt Count 229 (150-350) K/uL Neut % (Auto) 64.0 (45.0-80.0) % Lymph % (Auto) 18.6 (10.0-50.0) % [place] % (Auto) 9.8 (2.0-14.0) % Eos % (Auto) 7.2 H (0.0-5.0) % Baso % (Auto) 0.4 (0.0-2.0) % Neut # (Auto) 3.20 (1.40-7.00) K/uL Lymph # (Auto) 0.93 (0.50-3.50) K/uL [place] # (Auto) 0.49 (0.00-1.00) K/uL Eos # (Auto) 0.36 (0.00-0.50) K/uL Baso # (Auto) 0.02 (0.00-0.20) K/uL Sodium 143 (136-145) mmol/L Potassium 4.4 (3.5-5.1) mmol/L Chloride 108 H (98-107) mmol/L Carbon Dioxide 23.7 (21.0-32.0) mmol/L BUN 24 H (7-18) mg/dL Creatinine 0.81 (0.51-1.17) mg/dL Est Cr Clr Drug Dosing 34.48 mL/min Estimated GFR (MDRD) > 60 mL/min Glucose 85 (74-106) mg/dL Calcium 8.8 (8.5-10.1) mg/dL Total Bilirubin 0.4 (0.2-1.0) mg/dL AST 19 (15-37) U/L ALT 18 (12-78) U/L Alkaline Phosphatase 104 (46-116) IU/L Total Protein 6.4 (6.4-8.2) g/dL Albumin 3.2 L (3.4-5.0) g/dL Vitamin D 25-Hydroxy 25 L (30-100) ng/mL Med Orders - Current: Current Medications Acetaminophen (Tylenol Arthritis Pain) 650 mg PO TID@0800,1400,2000 [facility] Last Admin: 10/14/17 13:17 Dose: 650 mg Calcium Carbonate/Glycine (Tums) 500 mg PO BID [facility] Last Admin: 10/14/17 07:41 Dose: 500 mg Cholecalciferol (Vitamin D3) 1,000 units PO BID [facility] Donepezil HCl (Aricept) 5 mg PO QPM [facility] Last Admin: 10/13/17 17:03 Dose: 5 mg Memantine (Namenda) 5 mg PO BID [facility] Last Admin: 10/14/17 07:40 Dose: 5 mg Multivitamins/Minerals/Vitamin C (Tab-A-Te) 1 tab PO QAM [facility] Last Admin: 10/14/17 07:40 Dose: 1 tab Sodium Chloride (Saline Flush) 10 ml FLUSH ASDIRECTED PRN PRN Reason: Keep Vein Open Last Admin: 10/14/17 06:36 Dose: 10 ml Discontinued Medications Acetaminophen (Tylenol Arthritis Pain) 650 mg PO TID [facility] Last Admin: 10/12/17 07:54 Dose: 650 mg Cholecalciferol (Vitamin D3) 1,000 units PO QAM [facility] Last Admin: 10/14/17 07:40 Dose: 1,000 units Ketorolac Tromethamine (Toradol) 15 mg IVPUSH Q8H [facility] Stop: 10/14/17 14:01 Last Admin: 10/14/17 14:06 Dose: Not Given Morphine Sulfate (Morphine) 1 mg IVPUSH Q4H PRN PRN Reason: Pain Pantoprazole Sodium (Protonix Iv) 20 mg IVPUSH Q12H [facility] Last Admin: 10/12/17 15:26 Dose: 20 mg Pantoprazole Sodium (Protonix Iv) 20 mg IVPUSH Q12H [facility] Last Admin: 10/14/17 08:01 Dose: Not Given *Q Meaningful Use (DIS) - VTE *Q VTE Criteria *Q: - Stroke *Q Stroke Criteria *Q: - AMI *Q AMI Criteria *Q:
[2017-10-14] MEDS ORDERED: Cholecalciferol (Vitamin D3) 1,000 Unit Tab PO SCH (18:00)
== END 2017-10-14 17:15 | disposition swing bed (61) | DRG 536 ==
LOC: LL.MS 09:20
PROVIDERS: ADMIT Nurse Practitioner Family; ATTEND Family Medicine
DX: S32.502A Unspecified fracture of left pubis, initial encounter for closed fracture (principal); Y93.9 Activity, unspecified; I25.10 Atherosclerotic heart disease of native coronary artery without angina pectoris; G30.9 Alzheimer's disease, unspecified; F02.80 Dementia in other diseases classified elsewhere, unspecified severity, without behavioral disturbance, psychotic disturbance, mood disturbance, and anxiety; I50.9 Heart failure, unspecified; E78.00 Pure hypercholesterolemia, unspecified; I10 Essential (primary) hypertension; E06.3 Autoimmune thyroiditis; D64.9 Anemia, unspecified; E53.8 Deficiency of other specified B group vitamins; M15.0 Primary generalized (osteo)arthritis; F32.9 Major depressive disorder, single episode, unspecified; Z88.8 Allergy status to other drugs, medicaments and biological substances; Z79.899 Other long term (current) drug therapy
CPT/HCPCS: 36415; 80053; 82306; 82607; 82728; 82746; 83540; 83550; 85025; 86140; 97112-GP; 97116-GP; 97161-GP; 97530-GP; A9270-GY; C9113; J1885; J7050

== ENCOUNTER 2017-10-14 16:18 | Inpatient (IN) | payer MEDICARE, BC ==
--- NOTE | 2017-10-14 17:26 | PCM.PN ---
- General Info Date of Service: 10/14/17 Admission Dx/Problem (Free Text): 87 yo advanced dementia unknown trauma confirmed left pelvis fracture. Acute hospital for pain control with scheduled IV toradol. Now requiring admission to swing bed for PT-OT. Functional Status: Reports: Pain Controlled - Review of Systems General: Reports: No Symptoms HEENT: Reports: No Symptoms Pulmonary: Reports: No Symptoms Cardiovascular: Reports: No Symptoms Gastrointestinal: Reports: No Symptoms Genitourinary: Reports: No Symptoms Musculoskeletal: Reports: No Symptoms Skin: Reports: No Symptoms Neurological: Reports: No Symptoms Psychiatric: Reports: No Symptoms - Patient Data Med Orders - Current: Current Medications Acetaminophen (Tylenol Arthritis Pain) 650 mg PO TID@0800,1400,2000 [facility] Calcium Carbonate/Glycine (Tums) 500 mg PO BID [facility] Cholecalciferol (Vitamin D3) 1,000 units PO BID [facility] Donepezil HCl (Aricept) 5 mg PO QPM [facility] Memantine (Namenda) 5 mg PO BID [facility] Multivitamins/Minerals/Vitamin C (Tab-A-Te) 1 tab PO QAM [facility] - Exam General: Alert, Cooperative, No Acute Distress HEENT: Pupils Equal, Pupils Reactive, EOMI, Mucous Membr. Moist/[place]: Trachea Midline, No JVD Lungs: Clear to Auscultation, Normal Respiratory Effort Cardiovascular: Regular Rate, Regular Rhythm GI/Abdominal Exam: Normal Bowel Sounds, Soft, Non-Tender, No Distention, Pelvis Stable (Female) Exam: Deferred Back Exam: Other (kyphosis) Extremities: Normal Inspection, Non-Tender, No Pedal Edema Skin: Warm, Dry, Intact Neurological: No New Focal Deficit Psy/Mental Status: Alert, Anxious - Problem List & Annotations (1) Dementia SNOMED Code(s): 22210968 Code(s): F03.90 - UNSPECIFIED DEMENTIA WITHOUT BEHAVIORAL DISTURBANCE Status: Acute Qualifiers: Dementia type: Alzheimer's disease (2) Fracture of left pelvis SNOMED Code(s): 58027768 Code(s): S32.9XXA - FRACTURE OF UNSP PARTS OF LUMBOSACRAL SPINE AND PELVIS, INIT Status: Acute Qualifiers: Encounter type: initial encounter Pelvic bone location: pubis Sublocation of pubis: unspecified portion of pubis Fracture type: closed Qualified Code(s): S32.502A - Unspecified fracture of left pubis, initial encounter for closed fracture - Problem List Review Problem List Initiated/Reviewed/Updated: Yes - My Orders Last 24 Hours: My Active Orders 10/14/17 17:14 Patient Status [ADT] Routine Antiembolic Devices [RC] PER UNIT ROUTINE Antiembolic Devices [RC] PER UNIT ROUTINE Bedrest Bathroom Privileges [RC] ASDIRECTED Communication Order [RC] PRN Oxygen Therapy [RC] PRN VTE/DVT Education [RC] PER UNIT ROUTINE Vital Signs [RC] WEEKLY Consult to Case Management [CONS] Routine Consult to Occupational Therapy [OT Evaluation and Treatment] [CONS] Routine PT Evaluation and Treatment [CONS] Routine Antiembolic Hose [OM.PC] Per Unit Routine Discontinue Saline Lock [Peripheral IV Discontinue] [OM.PC] Routine 10/14/17 17:15 Code Status [Resuscitation Status] Routine 10/14/17 18:00 Calcium Carbonate [Tums] 500 mg PO BID Cholecalciferol (Vitamin D3) [Vitamin D3] 1,000 units PO BID Donepezil [Aricept] 5 mg PO QPM Memantine [Namenda] 5 mg PO BID 10/14/17 20:00 Acetaminophen [Tylenol Arthritis Pain] 650 mg PO TID@0800,1400,2000 10/14/17 Lunch Regular Diet [DIET] 10/15/17 08:00 Multivitamins [Tab-A-Te] 1 tab PO QAM - Plan Plan:: 10/14/17 Nori Paulino MD Admit to swing bed for PT-OT.
--- NOTE | 2017-10-14 17:47 | PCM.HP ---
H&P History of Present Illness - General Date of Service: 10/14/17 Admit Problem/Dx: 87 yo advanced dementia unknown trauma confirmed left pelvis fracture. Acute hospital for pain control with scheduled IV toradol. Now requiring admission to swing bed for PT-OT. Source of Information: Patient, Old Records - History of Present Illness Duration of Symptoms: Reports: Improving Location: Reports: Other (left groin) Improves with: Reports: Immobilization Worsens with: Reports: Movement Associated Symptoms: Reports: No Other Symptoms - Related Data Allergies/Adverse Reactions: Allergies Allergy/AdvReac Type Severity Reaction Status Date / Time fentanyl Allergy Confusion Verified 10/11/17 09:54 Home Medications: Home Meds Donepezil [Aricept] 5 mg PO QPM 04/15/15 [History] Acetaminophen [Tylenol Arthritis Pain] 650 mg PO TID 10/20/15 [History] Multivitamins [Tab-A-Te] 1 tab PO QAM 10/27/15 [History] Calcium Carbonate [Calcium] 500 mg PO BID 10/08/16 [History] Memantine HCl [Namenda] 5 mg PO BID 10/11/17 [History] Cholecalciferol (Vitamin D3) [Vitamin D3] 1,000 unit PO BID #0 10/14/17 [Rx] Past Medical History HEENT History: Reports: Impaired Vision Cardiovascular History: Reports: Arrhythmia, CAD, Heart Failure, High Cholesterol, Hypertension Respiratory History: Reports: COPD, Pulmonary Fibrosis Gastrointestinal History: Reports: Fecal Incontinence Other Gastrointestinal History: Borderline dysphagia, new incontinence issues Genitourinary History: Reports: Urinary Incontinence Other Genitourinary History: new incontinence issues 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 Musculoskeletal History: Reports: Arthritis, Back Pain, Chronic, Fracture, Neck Pain, Chronic, Osteoarthritis, Osteoporosis Other Musculoskeletal History: new onset of Lt upper thigh/groin/hip area pain especially with weightbearing Neurological History: Reports: Alzheimers Disease Psychiatric History: Reports: Depression Endocrine/Metabolic History: Reports: Multinodular Thyroid, Osteoporosis Other Endocrine/Metabolic History: Left thyroid nodule, 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 requiring surgery as below Hematologic History: Reports: Anemia, B12 Deficiency Immunologic History: Reports: None Oncologic (Cancer) History: Reports: None Dermatologic History: Reports: None - Infectious Disease History Infectious Disease History: Reports: Chicken Pox, Measles, Shingles - Past Surgical History Head Surgeries/Procedures: Reports: None HEENT Surgical History: Reports: Cataract Surgery, Tonsillectomy Endocrine Surgical History: Reports: Thyroidectomy, Other (See Below) - Past Imaging History Past Imaging History: Reports: IMELDA Screen, Cardiac Echo, CAT Scan, DEXA Scan, MRI, Ultrasound Social & Family History - Family History Cardiac: Reports: HI Neurological: Reports: CVA Oncologic: Reports: Lung, Renal, Other (See Below) Other Oncologic Family History: Father with possible fatal stomach cancer at age 52 - Tobacco Use Smoking Status *Q: Never Smoker Second Hand Smoke Exposure: No - Caffeine Use Caffeine Use: Reports: Coffee - Alcohol Use Days Per Week of Alcohol Use: 0 Number of Drinks Per Day: 0 Total Drinks Per Week: 0 - Recreational Drug Use Recreational Drug Use: No Drug Use in Last 12 Months: No - Living Situation & Occupation Living situation: Reports: , Assisted Living H&P Review of Systems - Review of Systems: Review Of Systems: See Below General: Reports: No Symptoms HEENT: Reports: No Symptoms Pulmonary: Reports: No Symptoms Cardiovascular: Reports: No Symptoms Gastrointestinal: Reports: No Symptoms Genitourinary: Reports: No Symptoms Musculoskeletal: Reports: Other (left groin pain) Skin: Reports: No Symptoms Psychiatric: Reports: Confusion, Anxiety Neurological: Reports: Confusion Hematologic/Lymphatic: Reports: No Symptoms Immunologic: Reports: No Symptoms Exam - Exam Exam: See Below - Vital Signs Vital Signs: Last Vital Signs Temp 97.7 F 10/14/17 17:31 Pulse 72 10/14/17 17:31 Resp 16 10/14/17 17:31 BP 141/75 H 10/14/17 17:31 Pulse Ox 98 10/14/17 17:31 - Exam General: Alert, Cooperative HEENT: Hearing Intact, Mucosa Moist & [place] Neck: Trachea Midline Lungs: Clear to Auscultation, Normal Respiratory Effort Cardiovascular: Regular Rate, Regular Rhythm GI/Abdominal Exam: Normal Bowel Sounds, Soft, Non-Tender, No Distention (Female) Exam: Deferred Rectal (Female) Exam: Deferred Back Exam: Other (kyphosis) Extremities: Normal Inspection, Non-Tender, No Pedal Edema Neuro Extensive - Mental Status: Alert, Disorientation to Time, Memory Loss- Recent Events Psychiatric: Alert, Anxious *Q Meaningful Use (ADM) - VTE *Q VTE Criteria *Q: - Stroke *Q Stroke Criteria *Q: - AMI *Q AMI Criteria *Q: - Problem List (1) Dementia SNOMED Code(s): 33599021 ICD Code: F03.90 - UNSPECIFIED DEMENTIA WITHOUT BEHAVIORAL DISTURBANCE Status: Acute Current Visit: No Qualifiers: Dementia type: Alzheimer's disease (2) Fracture of left pelvis SNOMED Code(s): 67545343 ICD Code: S32.9XXA - FRACTURE OF UNSP PARTS OF LUMBOSACRAL SPINE AND PELVIS, INIT Status: Acute Current Visit: No Qualifiers: Encounter type: initial encounter Pelvic bone location: pubis Sublocation of pubis: unspecified portion of pubis Fracture type: closed Qualified Code(s): S32.502A - Unspecified fracture of left pubis, initial encounter for closed fracture Problem List Initiated/Reviewed/Updated: Yes Orders Last 24hrs: Active Orders 24 hr Category Date Time Status Patient Status [ADT] Routine ADT 10/14/17 17:14 Active Antiembolic Devices [RC] 08,20 Care 10/14/17 17:14 Active Antiembolic Devices [RC] PER UNIT ROUTINE Care 10/14/17 17:14 Active Bedrest Bathroom Privileges [RC] ASDIRECTED Care 10/14/17 17:14 Active Communication Order [RC] 0800 Care 10/14/17 17:14 Active Oxygen Therapy [RC] PRN Care 10/14/17 17:14 Active VTE/DVT Education [RC] PER UNIT ROUTINE Care 10/14/17 17:14 Active Vital Signs [RC] WEEKLY Care 10/14/17 17:14 Active Consult to Case Management [CONS] Routine Cons 10/14/17 17:14 Active Consult to Occupational Therapy [OT Evaluation and Cons 10/14/17 17:14 Active Treatment] [CONS] Routine PT Evaluation and Treatment [CONS] Routine Cons 10/14/17 17:14 Active Regular Diet [DIET] Diet 10/14/17 Lunch Active Acetaminophen [Tylenol Arthritis Pain] Med 10/14/17 20:00 Active 650 mg PO TID@0800,1400,2000 Calcium Carbonate [Tums] Med 10/14/17 18:00 Active 500 mg PO BID Cholecalciferol (Vitamin D3) [Vitamin D3] Med 10/14/17 18:00 Pending 1,000 units PO BID Donepezil [Aricept] Med 10/14/17 18:00 Active 5 mg PO QPM Memantine [Namenda] Med 10/14/17 18:00 Active 5 mg PO BID Multivitamins [Tab-A-Te] Med 10/15/17 08:00 Active 1 tab PO QAM Antiembolic Hose [OM.PC] Per Unit Routine Oth 10/14/17 17:14 Ordered Discontinue Saline Lock [Peripheral IV Discontinue] [OM Oth 10/14/17 17:14 Ordered .PC] Routine Code Status [Resuscitation Status] Routine Resus Stat 10/14/17 17:15 Ordered Medication Orders Acetaminophen (Tylenol Arthritis Pain) 650 mg PO TID@0800,1400,2000 [facility] Calcium Carbonate/Glycine (Tums) 500 mg PO BID [facility] Cholecalciferol (Vitamin D3) 1,000 units PO BID [facility] Donepezil HCl (Aricept) 5 mg PO QPM [facility] Memantine (Namenda) 5 mg PO BID [facility] Multivitamins/Minerals/Vitamin C (Tab-A-Te) 1 tab PO QAM [facility] Assessment/Plan Comment:: 10/14/17 Nori Paulino MD Admit to swing bed for PT-OT.
[2017-10-14] MEDS: Calcium Carbonate 500 MG Tab.Chew PO SCH (17:54)
[2017-10-14] MEDS: Memantine 10 MG Tab PO SCH (17:54)
[2017-10-14] MEDS: Donepezil 5 MG Tab PO SCH (17:54)
[2017-10-14] MEDS: Acetaminophen 650 MG Tab.ER PO SCH (19:13)
[2017-10-15] MEDS: Acetaminophen 650 MG Tab.ER PO SCH ×3 (07:43→20:17)
[2017-10-15] MEDS: Calcium Carbonate 500 MG Tab.Chew PO SCH ×2 (07:44→17:47)
[2017-10-15] MEDS: Multivitamin Tab PO SCH (07:45)
[2017-10-15] MEDS: Memantine 10 MG Tab PO SCH ×2 (07:45→17:47)
--- NOTE | 2017-10-15 17:43 | PCM.SN ---
- Free Text/Narrative Note: 10/15/17 Nori Paulino MD X-ray right humerus reviewed. No obvious fracture.
[2017-10-15] MEDS: Donepezil 5 MG Tab PO SCH (17:47)
[2017-10-16] MEDS: Memantine 10 MG Tab PO SCH ×2 (07:13→17:10)
[2017-10-16] MEDS: Calcium Carbonate 500 MG Tab.Chew PO SCH ×2 (07:13→17:10)
[2017-10-16] MEDS: Acetaminophen 650 MG Tab.ER PO SCH ×3 (07:14→19:02)
[2017-10-16] MEDS: Multivitamin Tab PO SCH (07:14)
[2017-10-16] MEDS: Donepezil 5 MG Tab PO SCH (17:10)
[2017-10-17] MEDS: Acetaminophen 650 MG Tab.ER PO SCH ×3 (07:45→20:46)
[2017-10-17] MEDS: Multivitamin Tab PO SCH (07:45)
[2017-10-17] MEDS: Calcium Carbonate 500 MG Tab.Chew PO SCH ×2 (07:46→17:23)
[2017-10-17] MEDS: Memantine 10 MG Tab PO SCH ×2 (07:46→17:24)
[2017-10-17] MEDS: Cholecalciferol (Vitamin D3) 1,000 Unit Tab PO SCH ×4 (11:35→20:45)
[2017-10-17] MEDS: Donepezil 5 MG Tab PO SCH (17:23)
[2017-10-18] MEDS: Memantine 10 MG Tab PO SCH ×2 (12:57→17:37)
[2017-10-18] MEDS: Acetaminophen 650 MG Tab.ER PO SCH ×3 (12:57→20:56)
[2017-10-18] MEDS: Multivitamin Tab PO SCH (12:57)
[2017-10-18] MEDS: Calcium Carbonate 500 MG Tab.Chew PO SCH ×2 (12:57→17:37)
[2017-10-18] MEDS: Cholecalciferol (Vitamin D3) 1,000 Unit Tab PO SCH ×2 (12:57→17:37)
[2017-10-18] MEDS: Donepezil 5 MG Tab PO SCH (17:37)
[2017-10-19] MEDS: Calcium Carbonate 500 MG Tab.Chew PO SCH ×2 (07:29→17:45)
[2017-10-19] MEDS: Memantine 10 MG Tab PO SCH ×2 (07:29→17:45)
[2017-10-19] MEDS: Cholecalciferol (Vitamin D3) 1,000 Unit Tab PO SCH ×2 (07:30→17:45)
[2017-10-19] MEDS: Acetaminophen 650 MG Tab.ER PO SCH ×3 (07:30→20:28)
[2017-10-19] MEDS: Multivitamin Tab PO SCH (07:30)
[2017-10-19] MEDS: Donepezil 5 MG Tab PO SCH (17:45)
[2017-10-20] MEDS: Calcium Carbonate 500 MG Tab.Chew PO SCH ×2 (08:06→17:38)
[2017-10-20] MEDS: Memantine 10 MG Tab PO SCH ×2 (08:07→17:38)
[2017-10-20] MEDS: Acetaminophen 650 MG Tab.ER PO SCH ×3 (08:07→20:09)
[2017-10-20] MEDS: Cholecalciferol (Vitamin D3) 1,000 Unit Tab PO SCH ×2 (08:07→17:38)
[2017-10-20] MEDS: Multivitamin Tab PO SCH (08:07)
--- NOTE | 2017-10-20 14:28 | PCM.PN ---
- General Info Date of Service: 10/20/17 Admission Dx/Problem (Free Text): 87 yo advanced dementia unknown trauma confirmed left pelvis fracture. Acute hospital for pain control with scheduled IV toradol. Now requiring admission to swing bed for PT-OT. Functional Status: Reports: Pain Controlled - Review of Systems General: Reports: No Symptoms HEENT: Reports: No Symptoms Pulmonary: Reports: No Symptoms Cardiovascular: Reports: No Symptoms Gastrointestinal: Reports: No Symptoms Genitourinary: Reports: No Symptoms Musculoskeletal: Reports: No Symptoms Skin: Reports: No Symptoms Neurological: Reports: Confusion Psychiatric: Reports: Confusion - Patient Data Vitals - Most Recent: Last Vital Signs Temp 97.5 F 10/17/17 08:07 Pulse 64 10/15/17 07:28 Resp 17 10/17/17 08:07 BP 141/69 H 10/17/17 08:07 Pulse Ox 98 10/17/17 17:00 Weight - Most Recent: 119 lb 0.794 oz I&O - Last 24 Hours: Intake & Output 10/19/17 10/20/17 10/20/17 22:59 06:59 14:59 Intake Total 360 Balance 360 Med Orders - Current: Current Medications Acetaminophen (Tylenol Arthritis Pain) 650 mg PO TID@0800,1400,2000 [facility] Last Admin: 10/20/17 08:07 Dose: 650 mg Calcium Carbonate/Glycine (Tums) 500 mg PO BID [facility] Last Admin: 10/20/17 08:06 Dose: 500 mg Cholecalciferol (Vitamin D3) 1,000 units PO BID [facility] Last Admin: 10/20/17 08:07 Dose: 1,000 units Donepezil HCl (Aricept) 5 mg PO QPM [facility] Last Admin: 10/19/17 17:45 Dose: 5 mg Memantine (Namenda) 5 mg PO BID [facility] Last Admin: 10/20/17 08:07 Dose: 5 mg Multivitamins/Minerals/Vitamin C (Tab-A-Te) 1 tab PO QAM [facility] Last Admin: 10/20/17 08:07 Dose: 1 tab Discontinued Medications Cholecalciferol (Vitamin D3) 1,000 units PO BID [facility] Last Admin: 10/17/17 20:45 Dose: Not Given - Exam General: Alert, Cooperative, No Acute Distress HEENT: Mucous Membr. Moist/[place] Neck: Trachea Midline, No JVD Lungs: Clear to Auscultation, Normal Respiratory Effort Cardiovascular: Regular Rate, Regular Rhythm (Female) Exam: Deferred Back Exam: Other (kyphosis) Extremities: Normal Inspection, Non-Tender, No Pedal Edema Skin: Warm, Dry, Intact Neurological: No New Focal Deficit Psy/Mental Status: Alert, Anxious - Problem List & Annotations (1) Dementia SNOMED Code(s): 71306258 Code(s): F03.90 - UNSPECIFIED DEMENTIA WITHOUT BEHAVIORAL DISTURBANCE Status: Acute Current Visit: No Qualifiers: Dementia type: Alzheimer's disease (2) Fracture of left pelvis SNOMED Code(s): 96603992 Code(s): S32.9XXA - FRACTURE OF UNSP PARTS OF LUMBOSACRAL SPINE AND PELVIS, INIT Status: Acute Current Visit: No Qualifiers: Encounter type: initial encounter Pelvic bone location: pubis Sublocation of pubis: unspecified portion of pubis Fracture type: closed Qualified Code(s): S32.502A - Unspecified fracture of left pubis, initial encounter for closed fracture - Problem List Review Problem List Initiated/Reviewed/Updated: Yes - Plan Plan:: 10/14/17 Nori Paulino MD Admit to swing bed for PT-OT. 10/20/17 Nori Paulino MD She has improved with PT-OT. Ready for discharge in AM.
[2017-10-20] MEDS: Donepezil 5 MG Tab PO SCH (17:38)
[2017-10-21] MEDS: Cholecalciferol (Vitamin D3) 1,000 Unit Tab PO SCH (07:35)
[2017-10-21] MEDS: Multivitamin Tab PO SCH (07:35)
[2017-10-21] MEDS: Calcium Carbonate 500 MG Tab.Chew PO SCH (07:35)
[2017-10-21] MEDS: Acetaminophen 650 MG Tab.ER PO SCH (07:36)
[2017-10-21] MEDS: Memantine 10 MG Tab PO SCH (07:36)
[2017-10-21 08:38] VITALS: BP 121/68
--- NOTE | 2017-10-21 16:50 | PCM.DCSUM1 ---
Discharge Summary - Discharge Data Discharge Date: 10/21/17 Discharge Disposition: Home, W Home Health Agency 06 Condition: Good - Discharge Diagnosis/Problem(s) (1) Dementia SNOMED Code(s): 79738119 ICD Code: F03.90 - UNSPECIFIED DEMENTIA WITHOUT BEHAVIORAL DISTURBANCE Status: Acute Qualifiers: Dementia type: Alzheimer's disease Alzheimer's disease onset: unspecified onset Dementia behavioral disturbance: without behavioral disturbance Qualified Code(s): G30.9 - Alzheimer's disease, unspecified; F02.80 - Dementia in other diseases classified elsewhere without behavioral disturbance; F02.80 - Dementia in other diseases classified elsewhere without behavioral disturbance; F02.80 - Dementia in other diseases classified elsewhere without behavioral disturbance (2) Fracture of left pelvis SNOMED Code(s): 30669982 ICD Code: S32.9XXA - FRACTURE OF UNSP PARTS OF LUMBOSACRAL SPINE AND PELVIS, INIT Status: Acute Priority: High Qualifiers: Encounter type: initial encounter Pelvic bone location: pubis Sublocation of pubis: unspecified portion of pubis Fracture type: closed Qualified Code(s): S32.502A - Unspecified fracture of left pubis, initial encounter for closed fracture - Patient Summary/Data Consults: Consultations 10/14/17 17:14 Consult to Case Management [CONS] Routine Consult to Occupational Therapy [OT Evaluation and Treatment] [CONS] Routine PT Evaluation and Treatment [CONS] Routine - Patient Instructions Diet: Regular Diet as Tolerated Driving: Do Not Drive Showering/Bathing: May Shower Notify Provider of: Increased Pain - Discharge Plan Prescriptions/Med Rec: Cholecalciferol (Vitamin D3) [Vitamin D3] 1,000 units PO BID #100 tablet Home Medications: Home Meds Donepezil [Aricept] 5 mg PO QPM 04/15/15 [History] Acetaminophen [Tylenol Arthritis Pain] 650 mg PO TID 10/20/15 [History] Multivitamins [Tab-A-Te] 1 tab PO QAM 10/27/15 [History] Calcium Carbonate [Calcium] 500 mg PO BID 10/08/16 [History] Memantine HCl [Namenda] 5 mg PO BID 10/11/17 [History] Cholecalciferol (Vitamin D3) [Vitamin D3] 1,000 unit PO BID #0 10/14/17 [Rx] Cholecalciferol (Vitamin D3) [Vitamin D3] 1,000 units PO BID #100 tablet [Rx] - Discharge Summary/Plan Comment DC Time >30 min.: No Discharge Summary/Plan Comment: 10/21/17 Nori Paulino MD Left pelvic fracture. Was hospitalized for acute care, then admitted to swing bed for PT-OT. Now home with home care to [facility]. - Patient Data Vitals - Most Recent: Last Vital Signs Temp 97.6 F 10/21/17 08:00 Pulse 65 10/21/17 08:00 Resp 15 10/21/17 08:00 BP 121/68 10/21/17 08:00 Pulse Ox 97 10/21/17 08:00 Weight - Most Recent: 116 lb 8 oz Med Orders - Current: Current Medications Discontinued Medications Acetaminophen (Tylenol Arthritis Pain) 650 mg PO TID@0800,1400,2000 [facility] Last Admin: 10/21/17 07:36 Dose: 650 mg Calcium Carbonate/Glycine (Tums) 500 mg PO BID [facility] Last Admin: 10/21/17 07:35 Dose: 500 mg Cholecalciferol (Vitamin D3) 1,000 units PO BID [facility] Last Admin: 10/17/17 20:45 Dose: Not Given Cholecalciferol (Vitamin D3) 1,000 units PO BID [facility] Last Admin: 10/21/17 07:35 Dose: 1,000 units Donepezil HCl (Aricept) 5 mg PO QPM [facility] Last Admin: 10/20/17 17:38 Dose: 5 mg Memantine (Namenda) 5 mg PO BID [facility] Last Admin: 10/21/17 07:36 Dose: 5 mg Multivitamins/Minerals/Vitamin C (Tab-A-Te) 1 tab PO QAM [facility] Last Admin: 10/21/17 07:35 Dose: 1 tab *Q Meaningful Use (DIS) - VTE *Q VTE Criteria *Q: - Stroke *Q Stroke Criteria *Q: - AMI *Q AMI Criteria *Q:
== END 2017-10-21 10:15 | disposition home health service (06) | DRG 536 ==
LOC: LL.MS 17:19
PROVIDERS: ADMIT Family Medicine; ATTEND Family Medicine
DX: S32.502A Unspecified fracture of left pubis, initial encounter for closed fracture (principal); G30.9 Alzheimer's disease, unspecified; F02.80 Dementia in other diseases classified elsewhere, unspecified severity, without behavioral disturbance, psychotic disturbance, mood disturbance, and anxiety; W19.XXXA Unspecified fall, initial encounter; I25.10 Atherosclerotic heart disease of native coronary artery without angina pectoris; I11.0 Hypertensive heart disease with heart failure; E78.00 Pure hypercholesterolemia, unspecified; I50.9 Heart failure, unspecified; J44.9 Chronic obstructive pulmonary disease, unspecified; J84.10 Pulmonary fibrosis, unspecified; M19.90 Unspecified osteoarthritis, unspecified site; M81.0 Age-related osteoporosis without current pathological fracture; F32.9 Major depressive disorder, single episode, unspecified; Z79.899 Other long term (current) drug therapy
CPT/HCPCS: 73060-RT; 97110-GO; 97110-GP; 97112-GP; 97161-GP; 97165-GO; 97530-GO; 97530-GP; 97535-GO; A9270-GY

== ENCOUNTER 2018-03-13 18:56 | Emergency (ER) | payer MEDICARE, BC ==
--- NOTE | 2018-03-13 19:33 | EDM.PDOC ---
ED HPI GENERAL MEDICAL PROBLEM - General Chief Complaint: General Stated Complaint: L Arm Pain Time Seen by Provider: 03/13/18 18:59 Source of Information: Reports: EMS, EMS Notes Reviewed, Long Term Records History Limitations: Reports: Altered Mental Status - History of Present Illness INITIAL COMMENTS - FREE TEXT/NARRATIVE: Patient is a 87-year-old with history of dementia currently taking Namenda and Aricept is confused to time unable to tell us her date of but complained of left arm pain which has resolved by now denies headaches daily and his dizziness or confusion stroke code was called in the field Onset: Sudden Duration: Minutes:, Improving Location: Reports: Upper Extremity, Left Quality: Reports: Ache (Left arm pain) Severity: Mild Improves with: Reports: Rest Worsens with: Reports: Movement Associated Symptoms: Reports: Confusion - Related Data Allergies Allergy/AdvReac Type Severity Reaction Status Date / Time fentanyl Allergy Confusion Verified 10/11/17 09:54 Home Meds: Home Meds Donepezil [Aricept] 5 mg PO QPM 04/15/15 [History] Acetaminophen [Tylenol Arthritis Pain] 650 mg PO TID 10/20/15 [History] Multivitamins [Tab-A-Te] 1 tab PO QAM 10/27/15 [History] Calcium Carbonate [Calcium] 500 mg PO BID 10/08/16 [History] Memantine HCl [Namenda] 5 mg PO BID 10/11/17 [History] Cholecalciferol (Vitamin D3) [Vitamin D3] 1,000 unit PO BID #0 10/14/17 [Rx] Cholecalciferol (Vitamin D3) [Vitamin D3] 1,000 units PO BID #100 tablet [Rx] Past Medical History HEENT History: Reports: Impaired Vision Cardiovascular History: Reports: Arrhythmia, CAD, Heart Failure, High Cholesterol, Hypertension Respiratory History: Reports: COPD, Pulmonary Fibrosis Gastrointestinal History: Reports: Fecal Incontinence Other Gastrointestinal History: Borderline dysphagia, new incontinence issues Genitourinary History: Reports: Urinary Incontinence Other Genitourinary History: new incontinence issues [employer]PUT[employer]ER History: Reports: Spontaneous Musculoskeletal History: Reports: Arthritis, Back Pain, Chronic, Fracture, Neck Pain, Chronic, Osteoarthritis, Osteoporosis Other Musculoskeletal History: new onset of Lt upper thigh/groin/hip area pain especially with weightbearing Neurological History: Reports: Alzheimers Disease Psychiatric History: Reports: Depression Endocrine/Metabolic History: Reports: Multinodular Thyroid, Osteoporosis Other Endocrine/Metabolic History: Left thyroid nodule, 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 requiring surgery as below Hematologic History: Reports: Anemia, B12 Deficiency Immunologic History: Reports: None Oncologic (Cancer) History: Reports: None Dermatologic History: Reports: None - Infectious Disease History Infectious Disease History: Reports: Chicken Pox, Measles, Shingles - Past Surgical History Head Surgeries/Procedures: Reports: None HEENT Surgical History: Reports: Cataract Surgery, Tonsillectomy Endocrine Surgical History: Reports: Thyroidectomy, Other (See Below) - Past Imaging History Past Imaging History: Reports: IMELDA Screen, Cardiac Echo, CAT Scan, DEXA Scan, MRI, Ultrasound Social & Family History - Family History Cardiac: Reports: CA Neurological: Reports: CVA Oncologic: Reports: Lung, Renal, Other (See Below) Other Oncologic Family History: Father with possible fatal stomach cancer at age 52 - Caffeine Use Caffeine Use: Reports: Coffee - Living Situation & Occupation Living situation: Reports: , Assisted Living ED ROS GENERAL - Review of Systems Review Of Systems: ROS reveals no pertinent complaints other than HPI. ED EXAM, GENERAL - Physical Exam Exam: See Below Exam Limited By: Altered Mental Status General Appearance: Alert, WD/WN, No Apparent Distress, Anxious Eye Exam: Bilateral Eye: Abnormal Pupil (Irregular possibly secondary to cataract surgery), PERRL Ears: Normal External Exam, Normal Canal, Hearing Grossly Normal, Normal TMs Ear Exam: Bilateral Ear: Auricle Normal, Canal Normal, TM normal Nose: Normal Inspection, Normal Mucosa, No Blood Throat/Mouth: Normal Inspection, Normal Lips, Normal Teeth, Normal Gums, Normal Oropharynx, Normal Voice, No Airway Compromise Head: Atraumatic, Normocephalic Neck: Normal Inspection, Supple, Non-Tender, Full Range of Motion Respiratory/Chest: No Respiratory Distress, Lungs Clear, Normal Breath Sounds, No Accessory Muscle Use, Chest Non-Tender Cardiovascular: Normal Peripheral Pulses, Regular Rate, Rhythm, No Edema, No Gallop, No JVD, No Murmur, No Rub GI/Abdominal: Normal Bowel Sounds, Soft, Non-Tender, No Organomegaly, No Distention, No Abnormal Bruit, No Mass (Female) Exam: Deferred Rectal (Female) Exam: Deferred Back Exam: Normal Inspection, Full Range of Motion, NT Extremities: Normal Inspection, Normal Range of Motion, Non-Tender, Normal Capillary Refill, No Pedal Edema Neurological: Alert, Oriented, CN II-XII Intact, Normal Cognition, Normal Gait, Normal Reflexes, No Motor/Sensory Deficits Psychiatric: Normal Affect, Normal Mood Skin Exam: Warm, Dry, Intact, Normal Color, No Rash Lymphatic: No Adenopathy Course - Orders/Labs/Meds Orders: Active Orders 24 hr Category Date Time Status Chest 1V Frontal [CR] Routine Exams 03/13/18 19:15 Ordered Head wo Cont [CT] Routine Exams 03/13/18 19:00 Taken CK W CKMB [CHEM] Stat Lab 03/13/18 19:10 Received COMPREHENSIVE METABOLIC PN,CMP [CHEM] Stat Lab 03/13/18 19:10 Received D-DIMER QUANTITATIVE [COAG] Stat Lab 03/13/18 19:10 Received INR,PT,PROTHROMBIN TIME [COAG] Stat Lab 03/13/18 19:10 Received MAGNESIUM [CHEM] Stat Lab 03/13/18 19:10 Received PRO B-TYPE NATRIUR PEPT,BNPPRO [CHEM] Stat Lab 03/13/18 19:10 Received PTT,PARTIAL THROMBOPLSTIN TIME [COAG] Stat Lab 03/13/18 19:10 Received TROPONIN I [CHEM] Stat Lab 03/13/18 19:10 Received Labs: Laboratory Tests 03/13/18 Range/Units 19:10 WBC 7.2 (4.0-10.2) K/uL RBC 3.55 L (3.77-5.09) M/uL Hgb 12.4 (11.7-15.5) g/dL Hct 36.3 (34.0-46.0) % MCV 102.3 H (84.0-98.0) fL MCH 34.9 H (28.2-33.3) pg MCHC 34.2 (31.7-36.0) g/dL RDW 14.3 H (11.2-14.1) % Plt Count 260 (150-350) K/uL Neut % (Auto) 71.4 (45.0-80.0) % Lymph % (Auto) 16.3 (10.0-50.0) % [place] % (Auto) 10.1 (2.0-14.0) % Eos % (Auto) 1.8 (0.0-5.0) % Baso % (Auto) 0.4 (0.0-2.0) % Neut # (Auto) 5.14 (1.40-7.00) K/uL Lymph # (Auto) 1.17 (0.50-3.50) K/uL [place] # (Auto) 0.73 (0.00-1.00) K/uL Eos # (Auto) 0.13 (0.00-0.50) K/uL Baso # (Auto) 0.03 (0.00-0.20) K/uL Departure - Departure Time of Disposition: 19:33 Disposition: Home, Self-Care 01 Condition: Fair Clinical Impression: Left arm pain Dementia Qualifiers: Dementia type: Alzheimer's disease Alzheimer's disease onset: unspecified onset Dementia behavioral disturbance: without behavioral disturbance Qualified Code(s): G30.9 - Alzheimer's disease, unspecified - Discharge Information Referrals: Brenda Hilliard [employer] [Primary Care Provider] - Care Plan Goals: Patient is back to baseline with no deficits will send home spoke with daughter and agreed that no heroics should be done - My Orders Last 24 Hours: My Active Orders 03/13/18 19:00 Head wo Cont [CT] Routine 03/13/18 19:10 CK W CKMB [CHEM] Stat COMPREHENSIVE METABOLIC PN,CMP [CHEM] Stat D-DIMER QUANTITATIVE [COAG] Stat INR,PT,PROTHROMBIN TIME [COAG] Stat MAGNESIUM [CHEM] Stat PRO B-TYPE NATRIUR PEPT,BNPPRO [CHEM] Stat PTT,PARTIAL THROMBOPLSTIN TIME [COAG] Stat TROPONIN I [CHEM] Stat 03/13/18 19:15 Chest 1V Frontal [CR] Routine - Assessment/Plan Last 24 Hours: My Active Orders 03/13/18 19:00 Head wo Cont [CT] Routine 03/13/18 19:10 CK W CKMB [CHEM] Stat COMPREHENSIVE METABOLIC PN,CMP [CHEM] Stat D-DIMER QUANTITATIVE [COAG] Stat INR,PT,PROTHROMBIN TIME [COAG] Stat MAGNESIUM [CHEM] Stat PRO B-TYPE NATRIUR PEPT,BNPPRO [CHEM] Stat PTT,PARTIAL THROMBOPLSTIN TIME [COAG] Stat TROPONIN I [CHEM] Stat 03/13/18 19:15 Chest 1V Frontal [CR] Routine
[2018-03-13 19:38] LABS: CHLORIDE,CL 104 mmol/L (98-107); SODIUM,NA 140 mmol/L (136-145)
== END 2018-03-13 20:30 | disposition home or self-care (01) ==
LOC: LL.ED 18:56
DX: M79.602 Pain in left arm (principal); I25.10 Atherosclerotic heart disease of native coronary artery without angina pectoris; G30.9 Alzheimer's disease, unspecified; F02.80 Dementia in other diseases classified elsewhere, unspecified severity, without behavioral disturbance, psychotic disturbance, mood disturbance, and anxiety; I11.0 Hypertensive heart disease with heart failure; I50.9 Heart failure, unspecified; E78.00 Pure hypercholesterolemia, unspecified; Z88.8 Allergy status to other drugs, medicaments and biological substances; Z79.899 Other long term (current) drug therapy
CPT/HCPCS: 36000; 36415; 70450; 71045; 80053; 82550; 82553; 83735; 83880; 84484; 85025; 85379; 85610; 85730; 93005; 99285